=== PATIENT | male | born 1990 | race Caucasian/White ===

== ENCOUNTER 2018-08-27 14:49 | Emergency (ER) | payer OTHER ==
[2018-08-27] MEDS ORDERED: HYDROmorphone 1 MG/ML Syringe IVPUSH ONE ×2 (14:54→15:50)
[2018-08-27] MEDS ORDERED: Sodium Chloride 0.9% 10 ML Syringe FLUSH PRN (14:55)
[2018-08-27] MEDS ORDERED: Midazolam 1 MG/ML 2 ML SDV IVPUSH ONE ×2 (15:19→16:33)
--- NOTE | 2018-08-27 15:50 | CR ---
[id number] RAD/RAD Shoulder Right 2V Min EXAM: RAD Shoulder Right 2V Min CLINICAL DATA: TRAUMA COMPARISON: NO PREVIOUS SIMILAR EXAM IS AVAILABLE. FINDINGS: An anterior inferior dislocation of the right shoulder is seen.. IMPRESSION: DISLOCATED RIGHT SHOULDER DESCRIBED. Ottoniel Holt MD 08/27/18 [id number] Thank you for allowing us to participate in the care of your patient.
[2018-08-27] MEDS ORDERED: fentaNYL 100 MCG/2 ML SDV IVPUSH ONE (16:34)
--- NOTE | 2018-08-27 16:41 | CR ---
[id number] RAD/RAD Shoulder Right 1V EXAM: RAD Shoulder Right 1V CLINICAL DATA: POST REDUCTION EXAM COMPARISON: CORRELATION IS MADE WITH THE EARLIER EXAM FINDINGS: The reduction is not yet successful.. IMPRESSION: PERSISTENT DISLOCATION. Ottoniel Holt MD 08/27/18 1640 Thank you for allowing us to participate in the care of your patient.
--- NOTE | 2018-08-27 17:12 | EDM.PDOC ---
ED HPI GENERAL MEDICAL PROBLEM - General Chief Complaint: Upper Extremity Injury/Pain Stated Complaint: DISLOCATED SHOULDER Time Seen by Provider: 08/27/18 14:49 Source of Information: Reports: Patient History Limitations: Reports: No Limitations - History of Present Illness INITIAL COMMENTS - FREE TEXT/NARRATIVE: Pt. presents to ER with complaints of dislocation of R shoulder. States that he was doing bareback riding at a rodeo and injured his shoulder getting off of the horse. States that he did not injure himself elsewhere. He has a history of previous dislocation of this shoulder in the past. Denies any numbness/tingling in the distal portion of the extremity. Onset: Today Onset Date: 08/27/18 Location: Reports: Upper Extremity, Right Quality: Reports: Sharp, Stabbing Severity: Severe Right Shoulder Pain Score (Numeric/FACES): 9 - Related Data Allergies Allergy/AdvReac Type Severity Reaction Status Date / Time No Known Allergies Allergy Verified 08/27/18 14:58 Home Meds: Home Meds . [No Known Home Meds] 08/27/18 [History] Past Medical History - Past Surgical History Musculoskeletal Surgical History: Reports: Other (See Below) Other Musculoskeletal Surgeries/Procedures:: shoulder dislocation Social & Family History - Tobacco Use Smoking Status *Q: Never Smoker Review of Systems - Review of Systems Review Of Systems: See Below Musculoskeletal: Reports: Shoulder Pain Neurological: Reports: No Symptoms ED EXAM, GENERAL - Physical Exam Exam: See Below General Appearance: Alert, WD/WN, No Apparent Distress Extremities: Limited Range of Motion, Other (obvious deformity noted consistent with anterior shoulder dislocation noted to R shoulder. CMS intact. ) Skin Exam: Warm, Dry, Intact, Normal Color, No Rash ED TRAUMA EXTREMITY PROCEDURES - Joint Reduction Site: Shoulder (R) Sedation: Conscious Sedation Technique: Traction/Counter Traction, Other (max) Joint Reduction Complications: Yes Joint Reduction Complication Description: Unable to reduce the shoulder. attempted max and traction/countertraction method as well as external rotation method. All attempts unsuccessful. He was given dilaudid 1mg IV and versed 2mg IV initially, then 100mcg of fentanyl and 2mg versed IV for sedation. We do not have anesthesia here this weekend for full conscious sedation. Course - Vital Signs Last Recorded V/S: Last Vital Signs Temp 37.1 C 08/27/18 14:49 Pulse 100 08/27/18 14:49 Resp 18 08/27/18 14:49 BP 121/76 08/27/18 14:49 Pulse Ox 97 08/27/18 14:49 - Orders/Labs/Meds Orders: Active Orders 24 hr Category Date Time Status Sodium Chloride 0.9% [Saline Flush] Med 08/27/18 14:55 Active 10 ml FLUSH ASDIRECTED PRN Peripheral IV Insertion Adult [OM.PC] Routine Oth 08/27/18 14:55 Ordered Medication Orders Sodium Chloride (Saline Flush) 10 ml FLUSH ASDIRECTED PRN PRN Reason: Keep Vein Open Last Admin: 08/27/18 16:41 Dose: 10 ml Meds: Medications Generic Name Dose Route Start Last Admin Trade Name Freq PRN Reason Stop Dose Admin Sodium Chloride 10 ml 08/27/18 14:55 08/27/18 16:41 Saline Flush FLUSH 10 ml ASDIRECTED PRN Administration Keep Vein Open Discontinued Medications Generic Name Dose Route Start Last Admin Trade Name Freq PRN Reason Stop Dose Admin Fentanyl 100 mcg 08/27/18 16:34 08/27/18 16:39 Sublimaze IVPUSH 08/27/18 16:35 100 mcg ONETIME ONE Administration Hydromorphone HCl 1 mg 08/27/18 14:54 08/27/18 15:01 Dilaudid IVPUSH 08/27/18 14:55 1 mg ONETIME ONE Administration Hydromorphone HCl 0.5 mg 08/27/18 15:50 08/27/18 15:53 Dilaudid IVPUSH 08/27/18 15:51 0.5 mg ONETIME ONE Administration Midazolam HCl 2 mg 08/27/18 15:19 08/27/18 15:25 Versed 1 Mg/Ml IVPUSH 08/27/18 15:20 2 mg ONETIME ONE Administration Midazolam HCl 2 mg 08/27/18 16:33 08/27/18 16:39 Versed 1 Mg/Ml IVPUSH 08/27/18 16:34 2 mg ONETIME ONE Administration - Radiology Interpretation Free Text/Narrative:: shoulder dislocation (anterior) to R shoulder. Post reduction unsuccessful. Departure - Departure Time of Disposition: 17:15 Disposition: DC/Tfer to Acute Hospital 02 Clinical Impression: Shoulder dislocation - Discharge Information Instructions: Shoulder Dislocation Referrals: PCP,Not In Area [Primary Care Provider] - Forms: ED Department Discharge Additional Instructions: Travel to [facility] in [place]. Go straight to the ER. I spoke with Dr. Bustos, the ER doctor who will contact orthopedics. - Problem List Review Problem List Initiated/Reviewed/Updated: Yes - My Orders Last 24 Hours: My Active Orders 08/27/18 14:55 Sodium Chloride 0.9% [Saline Flush] 10 ml FLUSH ASDIRECTED PRN Peripheral IV Insertion Adult [OM.PC] Routine - Assessment/Plan Last 24 Hours: My Active Orders 08/27/18 14:55 Sodium Chloride 0.9% [Saline Flush] 10 ml FLUSH ASDIRECTED PRN Peripheral IV Insertion Adult [OM.PC] Routine Plan: Travel to [facility] in [place]. Go straight to the ER. I spoke with Dr. Bustos, the ER doctor who will contact orthopedics.
== END 2018-08-27 17:48 | disposition short-term general hospital (02) ==
LOC: VM.ED 14:49
DX: S43.004A Unspecified dislocation of right shoulder joint, initial encounter (principal); Y93.I9 Activity, other involving external motion; Y93.9 Activity, unspecified
CPT/HCPCS: 23650; 73020; 73030; 96374; 96375; 96376; 99283; J1170; J2250; J3010